=== PATIENT | male | born 1950 | race Two or more races ===

== ENCOUNTER 2017-08-24 19:30 | Emergency (ER) | payer MEDICARE, MEDICAID ==
[~2017-08-24] VITALS: Ht 170.2 cm; Wt 2.7 kg
[2017-08-24 20:02] VITALS: BP 146/79
[2017-08-24 20:27] LABS: BASOPHILS % (AUTO) 0.9 % (0.0-2.0); EOSINOPHILS % (AUTO) 1.4 % (0.0-3.0); HEMATOCRIT 39.4 % (42.0-52.0); HEMOGLOBIN 13.5 G/DL (14.2-18.0); LYMPHOCYTES % (AUTO) 48.6 % (20.0-45.0); MEAN CORPUSCULAR VOLUME 93 FL (80-99); MONOCYTES % (AUTO) 9.3 % (1.0-10.0); NEUTROPHILS % (AUTO) 39.9 % (45.0-75.0); PLATELET COUNT 148 K/UL (150-450); RED BLOOD COUNT 4.25 M/UL (4.70-6.10); RED CELL DISTRIBUTION WIDTH 11.5 % (11.6-14.8); WHITE BLOOD COUNT 6.6 K/UL (4.8-10.8)
[2017-08-24 20:31] LABS: ANION GAP 11 mmol/L (5-15); BLOOD UREA NITROGEN 13 mg/dL (7-18); CALCIUM 8.7 MG/DL (8.5-10.1); CARBON DIOXIDE 24 MMOL/L (21-32); CHLORIDE 100 MMOL/L (98-107); CREATININE 0.8 MG/DL (0.55-1.30); INR 0.9 (0.9-1.1); POTASSIUM 3.8 MMOL/L (3.5-5.1); SODIUM 135 MMOL/L (136-145)
[2017-08-24 20:43] LABS: ALANINE AMINOTRANSFERASE 66 U/L (12-78); ALBUMIN 3.6 G/DL (3.4-5.0); ALBUMIN/GLOBULIN RATIO 0.7 (1.0-2.7); ALKALINE PHOSPHATASE 105 U/L (46-116); ASPARTATE AMINO TRANSFERASE 70 U/L (15-37); BILIRUBIN,TOTAL 0.4 MG/DL (0.2-1.0); CREATINE KINASE 236 U/L (26-308)
[2017-08-24] MEDS ORDERED: Fluorescein Strips LEFT EYE ONE (21:15)
[2017-08-24] MEDS ORDERED: valACYclovir HCL 500mg tab ORAL ONE (21:15)
[2017-08-24 21:30] VITALS: BP 134/70
[2017-08-24 21:40] LABS: APPEARANCE,URINE CLEAR; BILIRUBIN, URINE NEGATIVE (NEGATIVE); COLOR,URINE PALE YELLOW; GLUCOSE, URINE (UA) 2+ (NEGATIVE); KETONES,URINE NEGATIVE (NEGATIVE); LEUKOCYTE ESTERASE ,URINE NEGATIVE (NEGATIVE); NITRITE,URINE NEGATIVE (NEGATIVE); PH,URINE 5 (4.5-8.0); PROTEIN,URINE 2+ (NEGATIVE); UROBILINOGEN,URINE NORMAL MG/DL (0.0-1.0)
[2017-08-24] MEDS ORDERED: Sulfacetamide 10% Opth 15ml Btl LEFT EYE STA (22:10)
--- NOTE | 2017-08-24 22:30 | Emergency Room Report ---
History of Present Illness General Chief Complaint: Stroke Symptoms Source: Family Member Present Illness HPI Patient presents with complaints of discharge from his left eye. He has left facial weakness and some numbness there. He states his symptoms started several days ago possibly on the right-hand side of his face first but now involving the left-hand side with significant weakness. No extremity weakness or numbness. No headache. No change in vision, although he has some beige drainage from the L eye. No chest pain, fever, NVD, cough, dyspnea, palpitations, dysuria, extremity pain , other rashes. He drinks beer. Friend with him implying he drinks heavily, though he denies this. No black outs or seizures. Denies DM, HTN. 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 Nursing Documentation: PMH: Agreed; PSxH: Agreed Nursing Documentation-PMH Past Medical History: No History, Except For Hx Diabetes: Yes Review of Systems All Other Systems: negative except mentioned in HPI Physical Exam Vital Signs Date Time Temp Pulse Resp B/P (MAP) Pulse Ox O2 Delivery O2 Flow Rate FiO2 08/24/17 19:33 98.5 71 18 149/80 94 Room Air 98.4 Sp02 EP Interpretation: reviewed, normal General Appearance: well appearing, no apparent distress, GCS 15 Head: normocephalic, atraumatic Eyes: left eye fluoroscene uptake - conjuntiva, no corneal uptake, left eye other - conjunctiva with erythema; bilateral eye PERRL ENT: moist mucus membranes, other - facial assymmetry - L weakness and dec sensation Neck: supple Respiratory: lungs clear, normal breath sounds Cardiovascular #1: regular rate, rhythm Cardiovascular #2: 2+ radial (R) Gastrointestinal: normal inspection, normal bowel sounds, non tender, no mass, non-distended Musculoskeletal: back normal, gait/station normal, normal range of motion Neurologic: alert, oriented x3, motor strength/tone normal - except L facial - no drift, DTRs symmetric, motor weakness - L facial, sensory deficit - L facial Psychiatric: mood/affect normal Skin: warm/dry, other - somewhat plethoric Medical Decision Making Diagnostic Impression: Primary Impression: Lewis's palsy Additional Impression: Bacterial conjunctivitis of left eye ER Course Patient presents with drainage L eye and facial weakness. DDX: Vernon, CVA, conjunctivitis, corneal abrasion amongst others. Exam c/w Vernon. No corneal injury - this is c/w conjunctivitis (at risk due to facial weakness). Eval with EKG, labs, CXR and CT head. EKG no injury, CXR unremarkable, CT no CVA, mass, bleed. Labs with glucose 192. Discussed findings and means to protect eye. Also importance of follow up with ENT and abstention from alcohol while on meds with patient and friend. Patient stable for outpatient observation and treatment. Laboratory Tests Test 08/24/17 19:55 08/24/17 20:45 White Blood Count 6.6 K/UL (4.8-10.8) Red Blood Count 4.25 M/UL (4.70-6.10) L Hemoglobin 13.5 G/DL (14.2-18.0) L Hematocrit 39.4 % (42.0-52.0) L Mean Corpuscular Volume 93 FL (80-99) Mean Corpuscular Hemoglobin 31.8 PG (27.0-31.0) H Mean Corpuscular Hemoglobin Concent 34.3 G/DL (32.0-36.0) Red Cell Distribution Width 11.5 % (11.6-14.8) L Platelet Count 148 K/UL (150-450) L Mean Platelet Volume 7.0 FL (6.5-10.1) Neutrophils (%) (Auto) 39.9 % (45.0-75.0) L Lymphocytes (%) (Auto) 48.6 % (20.0-45.0) H Monocytes (%) (Auto) 9.3 % (1.0-10.0) Eosinophils (%) (Auto) 1.4 % (0.0-3.0) Basophils (%) (Auto) 0.9 % (0.0-2.0) Prothrombin Time 9.7 SEC (9.30-11.50) Prothrombin Time INR 0.9 (0.9-1.1) PTT 26 SEC (23-33) Sodium Level 135 MMOL/L (136-145) L Potassium Level 3.8 MMOL/L (3.5-5.1) Chloride Level 100 MMOL/L (98-107) Carbon Dioxide Level 24 MMOL/L (21-32) Anion Gap 11 mmol/L (5-15) Blood Urea Nitrogen 13 mg/dL (7-18) Creatinine 0.8 MG/DL (0.55-1.30) Estimate Glomerular Filtration Rate > 60 mL/min (>60) Glucose Level 192 MG/DL (74-106) H Calcium Level 8.7 MG/DL (8.5-10.1) Total Bilirubin 0.4 MG/DL (0.2-1.0) Aspartate Amino Transferase (AST) 70 U/L (15-37) H Alanine Aminotransferase (ALT) 66 U/L (12-78) Alkaline Phosphatase 105 U/L (46-116) Total Creatine Kinase 236 U/L (26-308) Troponin I 0.000 ng/mL (0.000-0.056) Pro-B-Type Natriuretic Peptide 70 pg/mL (0-125) Total Protein 8.5 G/DL (6.4-8.2) H Albumin 3.6 G/DL (3.4-5.0) Globulin 4.9 g/dL Albumin/Globulin Ratio 0.7 (1.0-2.7) L Urine Color Pale yellow Urine Appearance Clear Urine pH 5 (4.5-8.0) Urine Specific [place] 1.010 (1.005-1.035) Urine Protein 2+ (NEGATIVE) H Urine Glucose (UA) 2+ (NEGATIVE) H Urine Ketones Negative (NEGATIVE) Urine Occult Blood Negative (NEGATIVE) Urine Nitrite Negative (NEGATIVE) Urine Bilirubin Negative (NEGATIVE) Urine Urobilinogen Normal MG/DL (0.0-1.0) Urine Leukocyte Esterase Negative (NEGATIVE) Urine RBC 0-2 /HPF (0 - 0) H Urine WBC 0-2 /HPF (0 - 0) Urine Squamous Epithelial Cells None /LPF (NONE/OCC) Urine Bacteria Few /HPF (NONE) Urine Opiates Screen Negative (NEGATIVE) Urine Barbiturates Screen Negative (NEGATIVE) Phencyclidine (PCP) Screen Negative (NEGATIVE) Urine Amphetamines Screen Negative (NEGATIVE) Urine Benzodiazepines Screen Negative (NEGATIVE) Urine Cocaine Screen Negative (NEGATIVE) Urine Marijuana (THC) Screen Negative (NEGATIVE) EKG Diagnostic Results Rate: normal Rhythm: NSR ST Segments: no acute changes Rhythm Strip Diag. Results EP Interpretation: yes Rhythm: NSR, no PVC's, no ectopy Chest X-Ray Diagnostic Results Chest X-Ray Diagnostic Results : Chest X-Ray Ordered: Yes # of Views/Limited/Complete: 1 View Indication: Other EP Interpretation: Yes Interpretation: no consolidation, no effusion, no pneumothorax, other - inc cor Impression: Other Electronically Signed by: Chano De Souza MD CT/MRI/US Diagnostic Results CT/MRI/US Diagnostic Results : Imaging Test Ordered: head Impression no mass, edema, bleed - polyps noted Last Vital Signs Date Time Temp Pulse Resp B/P (MAP) Pulse Ox O2 Delivery O2 Flow Rate FiO2 08/24/17 22:54 98.1 76 16 138/78 99 Room Air 98.1 Status: improved Disposition: HOME, SELF-CARE Condition: Improved Scripts Sulfacetamide Sodium (BLEPH-10) 5 Ml Drops 2 DROP OP Q6HR for 7 Days, ML Prov: Chano De Souza M.D. 08/24/17 Valacyclovir Hcl* (VALTREX*) 500 Mg Tablet 1000 MG ORAL TID, #21 TAB Prov: Chano De Souza M.D. 08/24/17 Prednisone* (PREDNISONE*) 10 Mg Tablet 10 MG ORAL DAILY, #22 TAB 0 Refills 4 po QD X 2, 3 po QD X 2, 2 po QD X 2, 1 po QD X 4 Prov: Chano De Souza M.D. 08/24/17 Referrals: NON PHYSICIAN (PCP) Chano De Souza M.D. Aug 24, 2017 22:30
[2017-08-24] MEDS ORDERED: BLEPH-105 ML OP (22:38)
[2017-08-24] MEDS ORDERED: VALACYCLOVIR500 MG ORAL (22:38)
[2017-08-24] MEDS ORDERED: PREDNISONE10 MG ORAL (22:38)
[2017-08-24 22:50] VITALS: BP 138/78
[2017-08-24 22:54] VITALS: BP 138/78
--- NOTE | 2017-08-25 09:06 | Diagnostic Imaging Report ---
Indication: Headache Technique: Contiguous 5 mm thick transaxial imaging of the head obtained in a Siemens Sensation [address] scanner. Soft tissue and bone windows generated. Automatic Exposure Control was utilized. Total Dose length Product (DLP): 1347.[address] Dose Index Volume (CTDIvol): 70.38 mGy Comparison: none Findings: There is mild prominence of the ventricles, basal cisterns, and cerebral sulci consistent with atrophy. Mild, nonspecific, white matter hypoattenuation is noted throughout the brain consistent with chronic small vessel disease. There is no midline shift, edema, acute hemorrhage, mass effect, or abnormal extra-axial fluid collections. Bones and extra osseous soft tissues are unremarkable. There are fluid retention cysts noted in the maxillary sinuses. Impression: No acute intracranial bleed, mass effect or edema. Mild atrophy of the brain. Nonspecific white matter hypoattenuation probably due to chronic small vessel disease. Maxillary sinus serous/mucous fluid retention cysts. [facility] has communicated the preliminary results to the Emergency Department. Their findings are largely concordant with this report. The CT scanner at [facility] is accredited by the [employer] and the scans are performed using dose optimization techniques as appropriate to a performed exam including Automatic Exposure control.
--- NOTE | 2017-08-25 10:21 | Diagnostic Imaging Report ---
Indication: Dyspnea Comparison: None A single view chest radiograph was obtained. Findings: Heart is enlarged. Pulmonary vascularity is slightly prominent. There is no overt CHF. No infiltrate identified. Bones are osteopenic. IMPRESSION: No acute disease
--- NOTE | 2017-08-25 16:53 | Cardiology Report ---
APPROVED REPORT EKG Measurement Heart [id number] Normal sinus rhythm Normal ECG non specific t wave abn
== END 2017-08-24 22:54 | disposition home or self-care (01) ==
LOC: EMR 20:03
DX: G51.0 Bell's palsy (principal); H10.89 Other conjunctivitis; M85.80 Other specified disorders of bone density and structure, unspecified site; G31.9 Degenerative disease of nervous system, unspecified; J34.1 Cyst and mucocele of nose and nasal sinus
CPT/HCPCS: 36415; 70450; 71045; 80053; 80307; 81003; 82550; 83880; 84484; 85025; 85610; 85730; 93005; 99282; J7512